=== PATIENT | male | born 1945 | race Caucasian/White ===

== ENCOUNTER 2016-10-27 12:17 | Emergency (ER) | payer SELFPAY ==
[~2016-10-27] VITALS: Ht 175.3 cm; Wt 81.6 kg
[2016-10-27 12:32] VITALS: BP_SYST 154
--- NOTE | 2016-10-27 12:45 | NUR ---
Patient to ER bed 6 to gown for evaluation. Side rails up. Report given to Gilma AKHTAR.
--- NOTE | 2016-10-27 13:00 | NUR ---
Pt c/o rash to RLE x 6 weeks. Pt states pain at 2/10 while resting, states pain 8/10 while ambulatory and describes pain as pins and needles.
[2016-10-27 13:18] LABS: BASOPHILS % (AUTO) 0.7 % (0.0-2.0); EOSINOPHILS # (AUTO) 0.3 K/uL (0.0-0.4); EOSINOPHILS % (AUTO) 4.8 % (0.0-4.0); HEMATOCRIT 46.6 % (36-54); HEMOGLOBIN 15.5 g/dL (14.0-18.0); LYMPHOCYTES # (AUTO) 0.9 K/uL (1.0-5.5); MEAN CORPUSCULAR HEMOGLOBIN 33 pg (27-31); MEAN CORPUSCULAR HGB CONC 33 % (32-36); MEAN CORPUSCULAR VOLUME 99 fL (79.0-98.0); MONOCYTES # (AUTO) 0.4 K/uL (0.0-1.0); MONOCYTES % (AUTO) 7.2 % (1.7-9.3); NEUTROPHILS # (AUTO) 4.3 K/uL (1.8-7.7); NEUTROPHILS % (AUTO) 72.3 % (40.0-70.0); PLATELET COUNT (AUTO) 239 K/uL (130-430); RED CELL DISTRIBUTION WIDTH 12.3 % (9.0-15.0); WHITE BLOOD COUNT (AUTO) 5.9 K/uL (4.8-10.8)
[2016-10-27 13:28] LABS: ANION GAP 6 (5-15); CALCIUM 9.1 mg/dL (8.4-11.0); CHLORIDE 105 mmol/L (98-107); CREATININE 0.98 mg/dL (0.55-1.30); GLUCOSE 116 mg/dL (70-99); POTASSIUM 4.2 mmol/L (3.5-5.1); SODIUM SERUM 139 mmol/L (136-145); UREA NITROGEN, BLOOD 9 mg/dL (8-21)
[2016-10-27 13:31] LABS: PROTHROMBIN TIME 11.3 SECS (9.5-12.5)
[2016-10-27 13:33] LABS: ALANINE AMINOTRANSFERASE 22 U/L (12-78); ALBUMIN 4.3 g/dL (3.4-4.8); ASPARTATE AMINOTRANSFERASE 23 U/L (10-37); TOTAL BILIRUBIN 2.1 mg/dL (0.0-1.0); TOTAL PROTEIN, SERUM 7.9 g/dL (6.4-8.3)
--- NOTE | 2016-10-27 13:50 | NUR ---
Dr. Zamora at bedside to assess pt.
[2016-10-27] MEDS ORDERED: AMPICILLIN SODIUM/SULBACTAM NA 3 GM in NS 100 ML IV ONE (14:00)
[2016-10-27] MEDS ORDERED: AMPICILLIN SODIUM/SULBACTAM NA 3 GM VIAL ONE (14:33)
[2016-10-27 14:56] LABS: BILIRUBIN,URINE NEGATIVE (NEGATIVE); BLOOD, URINE NEGATIVE (NEGATIVE); CLARITY/URINE CLEAR (CLEAR); COLOR,URINE YELLOW (YELLOW); GLUCOSE,URINE NEGATIVE (NEGATIVE); KETONES,URINE NEGATIVE (NEGATIVE); LEUKOCYTE ESTERASE ,URINE NEGATIVE (NEGATIVE); NITRITE, URINE NEGATIVE (NEGATIVE); PROTEIN URINE NEGATIVE (NEGATIVE); UROBILINOGEN,URINE 0.2 (0.2-1.0)
[2016-10-27 15:40] VITALS: BP_SYST 131
--- NOTE | 2016-10-27 15:40 | NUR ---
Patient given written and verbal discharge instructions and verbalizes understanding. ER MD dr. may discussed with patient the results and treatment provided. Patient in stable condition. ID arm band removed. IV catheter removed intact and dressing applied, no active bleeding. Rx of keflex tylenol given. Patient educated on pain management and to follow up with PMD. Pain Scale 0/10 Opportunity for questions provided and answered.
== END 2016-10-27 15:40 | disposition home or self-care (01) ==
LOC: SED 12:17
DX: L03.116 Cellulitis of left lower limb (principal); L03.115 Cellulitis of right lower limb
CPT/HCPCS: 36415; 80053; 81003; 83605; 85025; 85610; 87040; 96365; 99284; J0295

== ENCOUNTER 2016-11-05 16:07 | Emergency (ER) | payer SELFPAY ==
[~2016-11-05] VITALS: Ht 175.3 cm; Wt 79.4 kg
[2016-11-05 16:21] VITALS: BP 147/91; PULSE 88; RESP 14; TEMP 98.1; O2SAT 95
--- NOTE | 2016-11-05 16:50 | NUR ---
Ambulatory to bed 3
--- NOTE | 2016-11-05 16:52 | NUR ---
ED [facility] at bedside for medical evaluation
--- NOTE | 2016-11-05 16:55 | NUR ---
PT arrived to ED A/O x 4 with C/O lower leg rash x 10 days. PT states onset of open lesion rash 10 days ago. Seeked medical attention and was prescribed Keflex. PT states 4/10 burning pain bilaterally to the lower extremeties. No other complaints at this time. Will continue to monitor.
[2016-11-05] MEDS ORDERED: cefTRIAXone 2 GM VIAL IM ONE (17:30)
--- NOTE | 2016-11-05 17:30 | NUR ---
PT sitting quietly in bedside chair. Appears in no acute distress. Will continue to monitor.
[2016-11-05] MEDS ORDERED: LIDOCAINE 2%, 20 ML MDV ONE (17:56)
[2016-11-05] MEDS ORDERED: LIDOCAINE 2%, 20 ML MDV INJ ONE (18:00)
[2016-11-05 18:10] VITALS: BP 147/91; PULSE 88; RESP 14; TEMP 98.1; O2SAT 95
--- NOTE | 2016-11-05 18:10 | NUR ---
Patient given written and verbal discharge instructions and verbalizes understanding. ER MD discussed with patient the results and treatment provided. Patient in stable condition. ID arm band removed. Rx of doxycycline given. Patient educated on pain management, ABX regimine and to follow up with PMD. Pain Scale 2. Opportunity for questions provided and answered.
== END 2016-11-05 18:10 | disposition home or self-care (01) ==
LOC: SED 16:07
DX: L03.116 Cellulitis of left lower limb (principal); L03.115 Cellulitis of right lower limb
CPT/HCPCS: 36415; 87040; 96372; 99283; J0696; J2001

== ENCOUNTER 2016-11-15 18:17 | Emergency (ER) | payer SELFPAY ==
[~2016-11-15] VITALS: Ht 172.7 cm; Wt 83.9 kg
[2016-11-15 18:20] VITALS: BP_SYST 186
[2016-11-15 20:49] VITALS: BP_SYST 167
== END 2016-11-15 20:49 | disposition home or self-care (01) ==
LOC: SED 18:17
DX: L03.113 Cellulitis of right upper limb (principal); L03.116 Cellulitis of left lower limb; L03.115 Cellulitis of right lower limb; R03.0 Elevated blood-pressure reading, without diagnosis of hypertension
CPT/HCPCS: 99283

== ENCOUNTER 2023-02-09 11:10 | Inpatient (IN) | payer SELFPAY ==
[~2023-02-09] VITALS: Ht 170.2 cm; Wt 59.0 kg
[2023-02-09 11:10] VITALS: BP_SYST 116; PULSE 114; RESP 18; TEMP 97; O2SAT 97
[~2023-02-09 11:10] MED LIST: ASPI-1457 PO; METO25TA6 PO
[2023-02-09 11:58] LABS: BASOPHILS % (AUTO) 1.4 % (0.0-2.0); EOSINOPHILS # (AUTO) 0.1 K/uL (0.0-0.4); EOSINOPHILS % (AUTO) 1.8 % (0.0-4.0); HEMATOCRIT 37.8 % (36-54); HEMOGLOBIN 12.5 g/dL (14.0-18.0); LYMPHOCYTES # (AUTO) 1.2 K/uL (1.0-5.5); LYMPHOCYTES % (AUTO) 38.2 % (20.5-51.5); MEAN CORPUSCULAR HEMOGLOBIN 34 pg (27-31); MEAN CORPUSCULAR HGB CONC 33 % (32-36); MEAN CORPUSCULAR VOLUME 104 fL (79.0-98.0); MONOCYTES # (AUTO) 0.4 K/uL (0.0-1.0); MONOCYTES % (AUTO) 12.2 % (1.7-9.3); NEUTROPHILS # (AUTO) 1.4 K/uL (1.8-7.7); NEUTROPHILS % (AUTO) 46.4 % (40.0-70.0); PLATELET COUNT (AUTO) 228 K/uL (130-430); RED BLOOD CELL COUNT(AUTO) 3.65 MIL/uL (4.2-6.2); RED CELL DISTRIBUTION WIDTH 15.1 % (9.0-15.0); WHITE BLOOD COUNT (AUTO) 3.1 K/uL (4.8-10.8)
[2023-02-09 12:08] LABS: ALANINE AMINOTRANSFERASE 12 U/L (12-78); ALBUMIN 3.4 g/dL (3.4-4.8); ANION GAP 5 (5-15); ASPARTATE AMINOTRANSFERASE 23 U/L (10-37); CALCIUM 8.4 mg/dL (8.4-11.0); CARBON DIOXIDE 28 mmol/L (23-29); CHLORIDE 102 mmol/L (98-107); CREATININE 0.74 mg/dL (0.55-1.30); GLUCOSE 105 mg/dL (74-106); POTASSIUM 4.5 mmol/L (3.5-5.1); SODIUM SERUM 135 mmol/L (136-145); TOTAL BILIRUBIN 0.8 mg/dL (0.0-1.0); TOTAL PROTEIN, SERUM 6.9 g/dL (6.4-8.3); UREA NITROGEN, BLOOD 28 mg/dL (8-21)
[2023-02-09 12:17] LABS: CREATINE KINASE, TOTAL 82 U/L (39-308)
[2023-02-09 12:19] LABS: ACETAMINOPHEN < 1 ug/mL (1-30); ALCOHOL, BLOOD < 3 mg/dL (<10); SALICYLATE < 1 mg/dL (3-30)
[2023-02-09 12:22] LABS: INR 1.1 (0.80-1.20); PROTHROMBIN TIME 11.5 SECS (9.5-12.5)
[2023-02-09 12:34] LABS: ACETONE, SERUM NEGATIVE (NEGATIVE)
[2023-02-09] MEDS ORDERED: ONDANSETRON HCL 4 MG/2 ML VIAL IVP PRN (14:00)
[2023-02-09] MEDS ORDERED: HYDROcodone/ACETAMIN 5-325 MG TAB (NORCO/ VICODIN) PO PRN (14:00)
[2023-02-09] MEDS ORDERED: LORazepam 2 MG/ML VIAL IVP PRN (14:00)
[2023-02-09] MEDS ORDERED: HYDROcodone/ACETAMIN 10-325 MG TAB PO PRN (14:00)
[2023-02-09] MEDS ORDERED: ACETAMINOPHEN 325 MG TABLET PO PRN ×2 (14:00→14:15)
[2023-02-09] MEDS: NORMAL SALINE 5 ML DISP.SYRIN IVF SCH ×2 (14:14→23:18)
[2023-02-09 14:34] LABS: BILIRUBIN,URINE NEGATIVE (NEGATIVE); BLOOD, URINE NEGATIVE (NEGATIVE); CLARITY/URINE CLEAR (CLEAR); COLOR,URINE YELLOW (YELLOW); GLUCOSE,URINE NEGATIVE (NEGATIVE); KETONES,URINE NEGATIVE (NEGATIVE); LEUKOCYTE ESTERASE ,URINE NEGATIVE (NEGATIVE); NITRITE, URINE NEGATIVE (NEGATIVE); PH,URINE 6.5 (5.0-8.0); PROTEIN URINE NEGATIVE (NEGATIVE)
[2023-02-09 14:46] LABS: BARBITURATE, URINE NEGATIVE (NEG <=200); BENZODIAZEPINE, URINE NEGATIVE (NEG <=150); CANNABINOID, URINE NEGATIVE (NEG <=50); COCAINE, URINE NEGATIVE (NEG <=150); METHAMPHETAMINES SCREEN,URINE NEGATIVE (NEG <=500); OPIATE, URINE NEGATIVE (NEG <=100); PHENCYCLIDINE SCREEN,URINE NEGATIVE (NEG <=25); UR TRICYCLIC ANTIDEPRESSANTS NEGATIVE (NEG <=300); URINE AMPHETAMINE NEGATIVE (NEG <=500); URINE METHADONE NEGATIVE (NEG <=200); URINE OXYCODONE SCREEN NEGATIVE (NEG <=100); URINE PROPOXYPHENE SCREEN NEGATIVE (NEG <=300)
[2023-02-09 16:08] VITALS: BP_SYST 142; PULSE 113; RESP 16; TEMP 97.4; O2SAT 99
[2023-02-09 16:09] VITALS: BP_SYST 142; PULSE 113; RESP 16; TEMP 97.4
[2023-02-09 20:00] VITALS: BP_SYST 122; PULSE 100; RESP 18; TEMP 98; O2SAT 95; O2SAT 98
[2023-02-09 23:13] VITALS: BP_SYST 122; PULSE 100; RESP 18; TEMP 98; O2SAT 98
[2023-02-10] VITALS (7 sets, daily range): BP systolic 106–136; PULSE 76–95; RESP 16–18; TEMP 96.8–98.6; O2SAT 96–99
[2023-02-10 05:08] LABS: BASOPHILS % (AUTO) 1.2 % (0.0-2.0); EOSINOPHILS # (AUTO) 0.1 K/uL (0.0-0.4); EOSINOPHILS % (AUTO) 2.9 % (0.0-4.0); HEMATOCRIT 36.9 % (36-54); HEMOGLOBIN 12.4 g/dL (14.0-18.0); LYMPHOCYTES # (AUTO) 1.3 K/uL (1.0-5.5); LYMPHOCYTES % (AUTO) 48.2 % (20.5-51.5); MEAN CORPUSCULAR HEMOGLOBIN 35 pg (27-31); MEAN CORPUSCULAR HGB CONC 34 % (32-36); MEAN CORPUSCULAR VOLUME 103 fL (79.0-98.0); MONOCYTES # (AUTO) 0.4 K/uL (0.0-1.0); MONOCYTES % (AUTO) 13.7 % (1.7-9.3); PLATELET COUNT (AUTO) 184 K/uL (130-430); RED BLOOD CELL COUNT(AUTO) 3.59 MIL/uL (4.2-6.2); RED CELL DISTRIBUTION WIDTH 14.7 % (9.0-15.0); WHITE BLOOD COUNT (AUTO) 2.8 K/uL (4.8-10.8)
[2023-02-10 05:13] LABS: NEUTROPHILS # (AUTO) 0.9 K/uL (1.8-7.7)
[2023-02-10] MEDS: NORMAL SALINE 5 ML DISP.SYRIN IVF SCH ×3 (05:21→22:45)
[2023-02-10 06:33] LABS: ALANINE AMINOTRANSFERASE 13 U/L (12-78); ALBUMIN 3.1 g/dL (3.4-4.8); ANION GAP 2 (5-15); ASPARTATE AMINOTRANSFERASE 23 U/L (10-37); CALCIUM 8.5 mg/dL (8.4-11.0); CARBON DIOXIDE 31 mmol/L (23-29); CHLORIDE 103 mmol/L (98-107); CREATININE 0.72 mg/dL (0.55-1.30); GLUCOSE 95 mg/dL (74-106); PHOSPHORUS 4.2 mg/dL (2.7-4.5); POTASSIUM 4.4 mmol/L (3.5-5.1); SODIUM SERUM 136 mmol/L (136-145); TOTAL BILIRUBIN 1.2 mg/dL (0.0-1.0); TOTAL PROTEIN, SERUM 6.1 g/dL (6.4-8.3); UREA NITROGEN, BLOOD 20 mg/dL (8-21)
[2023-02-11 00:29] VITALS: BP_SYST 99; PULSE 59; RESP 15; TEMP 96.9; O2SAT 97
[2023-02-11 05:19] LABS: BASOPHILS % (AUTO) 0.8 % (0.0-2.0); EOSINOPHILS # (AUTO) 0.1 K/uL (0.0-0.4); EOSINOPHILS % (AUTO) 2.5 % (0.0-4.0); HEMATOCRIT 36.9 % (36-54); HEMOGLOBIN 12.3 g/dL (14.0-18.0); LYMPHOCYTES # (AUTO) 1.4 K/uL (1.0-5.5); LYMPHOCYTES % (AUTO) 43.1 % (20.5-51.5); MEAN CORPUSCULAR HEMOGLOBIN 34 pg (27-31); MEAN CORPUSCULAR HGB CONC 33 % (32-36); MEAN CORPUSCULAR VOLUME 103 fL (79.0-98.0); MONOCYTES # (AUTO) 0.5 K/uL (0.0-1.0); MONOCYTES % (AUTO) 15.6 % (1.7-9.3); NEUTROPHILS # (AUTO) 1.2 K/uL (1.8-7.7); PLATELET COUNT (AUTO) 203 K/uL (130-430); RED BLOOD CELL COUNT(AUTO) 3.58 MIL/uL (4.2-6.2); RED CELL DISTRIBUTION WIDTH 14.8 % (9.0-15.0); WHITE BLOOD COUNT (AUTO) 3.2 K/uL (4.8-10.8)
[2023-02-11 05:37] LABS: ANION GAP 4 (5-15); CALCIUM 8.7 mg/dL (8.4-11.0); CARBON DIOXIDE 31 mmol/L (23-29); CHLORIDE 102 mmol/L (98-107); CREATININE 0.86 mg/dL (0.55-1.30); GLUCOSE 81 mg/dL (74-106); POTASSIUM 4.5 mmol/L (3.5-5.1); SODIUM SERUM 137 mmol/L (136-145); UREA NITROGEN, BLOOD 25 mg/dL (8-21)
[2023-02-11] MEDS: NORMAL SALINE 5 ML DISP.SYRIN IVF SCH ×3 (06:17→21:39)
[2023-02-11 08:56] VITALS: O2SAT 99
[2023-02-11 12:00] VITALS: BP_SYST 136; PULSE 80; RESP 17; TEMP 98.1; O2SAT 94
[2023-02-11 16:00] VITALS: BP_SYST 131; PULSE 82; RESP 18; TEMP 97.8; O2SAT 95
[2023-02-11 19:30] VITALS: O2SAT 99
[2023-02-11 20:00] VITALS: BP_SYST 104; PULSE 84; RESP 18; TEMP 97.6; O2SAT 99
[2023-02-12] VITALS: BP_SYST 108; PULSE 78; RESP 18; TEMP 97.3; O2SAT 98
[2023-02-12] MEDS: NORMAL SALINE 5 ML DISP.SYRIN IVF SCH ×3 (05:56→21:28)
[2023-02-12 06:43] LABS: BASOPHILS % (AUTO) 0.9 % (0.0-2.0); EOSINOPHILS # (AUTO) 0.1 K/uL (0.0-0.4); EOSINOPHILS % (AUTO) 2.4 % (0.0-4.0); HEMATOCRIT 38.6 % (36-54); HEMOGLOBIN 13.1 g/dL (14.0-18.0); LYMPHOCYTES # (AUTO) 1.1 K/uL (1.0-5.5); LYMPHOCYTES % (AUTO) 30.3 % (20.5-51.5); MEAN CORPUSCULAR HEMOGLOBIN 35 pg (27-31); MEAN CORPUSCULAR HGB CONC 34 % (32-36); MEAN CORPUSCULAR VOLUME 102 fL (79.0-98.0); MONOCYTES # (AUTO) 0.6 K/uL (0.0-1.0); MONOCYTES % (AUTO) 15.9 % (1.7-9.3); NEUTROPHILS # (AUTO) 1.9 K/uL (1.8-7.7); NEUTROPHILS % (AUTO) 50.5 % (40.0-70.0); PLATELET COUNT (AUTO) 215 K/uL (130-430); RED BLOOD CELL COUNT(AUTO) 3.79 MIL/uL (4.2-6.2); RED CELL DISTRIBUTION WIDTH 14.9 % (9.0-15.0)
[2023-02-12 07:45] LABS: ALANINE AMINOTRANSFERASE 10 U/L (12-78); ANION GAP 2 (5-15); ASPARTATE AMINOTRANSFERASE 20 U/L (10-37); CALCIUM 8.7 mg/dL (8.4-11.0); CARBON DIOXIDE 31 mmol/L (23-29); CHLORIDE 102 mmol/L (98-107); CREATININE 0.78 mg/dL (0.55-1.30); GLUCOSE 92 mg/dL (74-106); POTASSIUM 4.5 mmol/L (3.5-5.1); SODIUM SERUM 135 mmol/L (136-145); TOTAL PROTEIN, SERUM 6.4 g/dL (6.4-8.3); UREA NITROGEN, BLOOD 23 mg/dL (8-21)
[2023-02-12 07:51] LABS: WHITE BLOOD COUNT (AUTO) 3.7 K/uL (4.8-10.8)
[2023-02-12 08:00] VITALS: BP_SYST 118; PULSE 72; RESP 14; TEMP 98.1; O2SAT 96
[2023-02-12 12:00] VITALS: BP_SYST 100; PULSE 84; RESP 18; TEMP 98.4
[2023-02-12 16:00] VITALS: BP_SYST 133; PULSE 82; RESP 18; TEMP 98.2; O2SAT 99
[2023-02-12 19:30] VITALS: O2SAT 98
[2023-02-12 20:00] VITALS: BP_SYST 133; PULSE 84; RESP 18; TEMP 97.9; O2SAT 98
[2023-02-13 02:08] VITALS: BP_SYST 103; PULSE 84; RESP 18; TEMP 97.6; O2SAT 97
[2023-02-13 05:22] LABS: BASOPHILS % (AUTO) 1.5 % (0.0-2.0); EOSINOPHILS # (AUTO) 0.1 K/uL (0.0-0.4); EOSINOPHILS % (AUTO) 3.3 % (0.0-4.0); HEMATOCRIT 41.6 % (36-54); HEMOGLOBIN 13.7 g/dL (14.0-18.0); LYMPHOCYTES # (AUTO) 1.2 K/uL (1.0-5.5); LYMPHOCYTES % (AUTO) 38.1 % (20.5-51.5); MEAN CORPUSCULAR HEMOGLOBIN 34 pg (27-31); MEAN CORPUSCULAR HGB CONC 33 % (32-36); MEAN CORPUSCULAR VOLUME 103 fL (79.0-98.0); MONOCYTES # (AUTO) 0.6 K/uL (0.0-1.0); MONOCYTES % (AUTO) 19.3 % (1.7-9.3); NEUTROPHILS # (AUTO) 1.2 K/uL (1.8-7.7); NEUTROPHILS % (AUTO) 37.8 % (40.0-70.0); PLATELET COUNT (AUTO) 222 K/uL (130-430); RED BLOOD CELL COUNT(AUTO) 4.04 MIL/uL (4.2-6.2); RED CELL DISTRIBUTION WIDTH 14.9 % (9.0-15.0); WHITE BLOOD COUNT (AUTO) 3.3 K/uL (4.8-10.8)
[2023-02-13 05:46] LABS: ANION GAP 7 (5-15); CALCIUM 8.7 mg/dL (8.4-11.0); CARBON DIOXIDE 29 mmol/L (23-29); CHLORIDE 102 mmol/L (98-107); CREATININE 0.79 mg/dL (0.55-1.30); GLUCOSE 98 mg/dL (74-106); POTASSIUM 4.6 mmol/L (3.5-5.1); SODIUM SERUM 138 mmol/L (136-145); UREA NITROGEN, BLOOD 26 mg/dL (8-21)
[2023-02-13] MEDS: NORMAL SALINE 5 ML DISP.SYRIN IVF SCH ×3 (06:25→21:03)
[2023-02-13 08:00] VITALS: BP_SYST 118; PULSE 80; RESP 18; TEMP 97.4; O2SAT 92
[2023-02-13 12:00] VITALS: BP_SYST 116; PULSE 80; RESP 18; TEMP 97.6; O2SAT 93
[2023-02-13 16:00] VITALS: BP_SYST 118; PULSE 84; RESP 18; TEMP 97.5; O2SAT 94
[2023-02-13 20:00] VITALS: BP_SYST 105; PULSE 86; RESP 18; TEMP 97.8; O2SAT 99
[2023-02-14 00:40] VITALS: BP_SYST 126; PULSE 87; RESP 14; TEMP 96.7; O2SAT 100
[2023-02-14 04:45] LABS: BASOPHILS % (AUTO) 1.6 % (0.0-2.0); EOSINOPHILS # (AUTO) 0.1 K/uL (0.0-0.4); EOSINOPHILS % (AUTO) 3.6 % (0.0-4.0); HEMATOCRIT 42.6 % (36-54); HEMOGLOBIN 13.9 g/dL (14.0-18.0); LYMPHOCYTES # (AUTO) 1.1 K/uL (1.0-5.5); LYMPHOCYTES % (AUTO) 39.2 % (20.5-51.5); MEAN CORPUSCULAR HEMOGLOBIN 34 pg (27-31); MEAN CORPUSCULAR HGB CONC 33 % (32-36); MEAN CORPUSCULAR VOLUME 103 fL (79.0-98.0); MONOCYTES # (AUTO) 0.5 K/uL (0.0-1.0); MONOCYTES % (AUTO) 16.7 % (1.7-9.3); NEUTROPHILS # (AUTO) 1.1 K/uL (1.8-7.7); NEUTROPHILS % (AUTO) 38.9 % (40.0-70.0); PLATELET COUNT (AUTO) 221 K/uL (130-430); RED BLOOD CELL COUNT(AUTO) 4.15 MIL/uL (4.2-6.2); WHITE BLOOD COUNT (AUTO) 2.8 K/uL (4.8-10.8)
[2023-02-14 05:04] LABS: ALANINE AMINOTRANSFERASE 12 U/L (12-78); ANION GAP 4 (5-15); ASPARTATE AMINOTRANSFERASE 19 U/L (10-37); CALCIUM 8.6 mg/dL (8.4-11.0); CARBON DIOXIDE 32 mmol/L (23-29); CHLORIDE 103 mmol/L (98-107); CREATININE 0.72 mg/dL (0.55-1.30); GLUCOSE 92 mg/dL (74-106); POTASSIUM 4.4 mmol/L (3.5-5.1); SODIUM SERUM 139 mmol/L (136-145); TOTAL BILIRUBIN 1.1 mg/dL (0.0-1.0); TOTAL PROTEIN, SERUM 6.8 g/dL (6.4-8.3); UREA NITROGEN, BLOOD 28 mg/dL (8-21)
[2023-02-14] MEDS: NORMAL SALINE 5 ML DISP.SYRIN IVF SCH ×3 (05:55→22:52)
[2023-02-14 08:00] VITALS: BP_SYST 120; PULSE 86; RESP 16; TEMP 97.6; O2SAT 96; O2SAT 99
[2023-02-14 12:00] VITALS: BP_SYST 116; PULSE 96; RESP 16; TEMP 98.8; O2SAT 97
[2023-02-14 15:42] VITALS: BP_SYST 125; PULSE 88; RESP 18; TEMP 97.9; O2SAT 95
[2023-02-14 16:00] VITALS: BP_SYST 119; PULSE 93; RESP 16; TEMP 98.2; O2SAT 97
[2023-02-14 21:00] VITALS: BP_SYST 129; PULSE 89; RESP 18; TEMP 97.5; O2SAT 96
[2023-02-15] VITALS: O2SAT 95
[2023-02-15 01:00] VITALS: BP_SYST 132; PULSE 89; RESP 18; TEMP 98.3; O2SAT 96
[2023-02-15] MEDS: NORMAL SALINE 5 ML DISP.SYRIN IVF SCH ×2 (05:44→13:09)
[2023-02-15 07:04] LABS: BASOPHILS # (AUTO) 0.1 K/uL (0.0-0.2); BASOPHILS % (AUTO) 2.3 % (0.0-2.0); EOSINOPHILS # (AUTO) 0.1 K/uL (0.0-0.4); EOSINOPHILS % (AUTO) 3.2 % (0.0-4.0); HEMATOCRIT 40.6 % (36-54); HEMOGLOBIN 13.3 g/dL (14.0-18.0); LYMPHOCYTES # (AUTO) 0.9 K/uL (1.0-5.5); LYMPHOCYTES % (AUTO) 32.9 % (20.5-51.5); MEAN CORPUSCULAR HEMOGLOBIN 34 pg (27-31); MEAN CORPUSCULAR HGB CONC 33 % (32-36); MEAN CORPUSCULAR VOLUME 103 fL (79.0-98.0); MONOCYTES # (AUTO) 0.5 K/uL (0.0-1.0); MONOCYTES % (AUTO) 16.8 % (1.7-9.3); NEUTROPHILS # (AUTO) 1.2 K/uL (1.8-7.7); NEUTROPHILS % (AUTO) 44.8 % (40.0-70.0); PLATELET COUNT (AUTO) 207 K/uL (130-430); RED BLOOD CELL COUNT(AUTO) 3.94 MIL/uL (4.2-6.2); WHITE BLOOD COUNT (AUTO) 2.8 K/uL (4.8-10.8)
[2023-02-15 07:25] LABS: ANION GAP 4 (5-15); CARBON DIOXIDE 31 mmol/L (23-29); CHLORIDE 101 mmol/L (98-107); CREATININE 0.82 mg/dL (0.55-1.30); GLUCOSE 93 mg/dL (74-106); POTASSIUM 4.3 mmol/L (3.5-5.1); SODIUM SERUM 136 mmol/L (136-145); UREA NITROGEN, BLOOD 40 mg/dL (8-21)
[2023-02-15 08:00] VITALS: BP_SYST 114; PULSE 77; RESP 15; TEMP 97.6; O2SAT 99
[2023-02-15 12:58] VITALS: O2SAT 99
[2023-02-15 15:19] VITALS: BP_SYST 123; PULSE 84; RESP 15; TEMP 97.3; O2SAT 98
[2023-02-15 15:31] VITALS: BP_SYST 128; PULSE 76; RESP 15; TEMP 97.2; O2SAT 98
== END 2023-02-15 16:05 | disposition home or self-care (01) | DRG 641 ==
LOC: SED 11:10 → EDBD 11:10 → MERGE 13:44 → SMU 13:44
PROVIDERS: ADMIT Preventive Medicine Preventive Medicine/Occupational Environmental Medicine; ATTEND Preventive Medicine Preventive Medicine/Occupational Environmental Medicine
DX: E87.1 Hypo-osmolality and hyponatremia (principal); G93.40 Encephalopathy, unspecified; E44.0 Moderate protein-calorie malnutrition; E87.20 Acidosis, unspecified; K40.90 Unilateral inguinal hernia, without obstruction or gangrene, not specified as recurrent; E88.09 Other disorders of plasma-protein metabolism, not elsewhere classified; D72.819 Decreased white blood cell count, unspecified; D64.9 Anemia, unspecified; R79.89 Other specified abnormal findings of blood chemistry; M47.818 Spondylosis without myelopathy or radiculopathy, sacral and sacrococcygeal region; M47.816 Spondylosis without myelopathy or radiculopathy, lumbar region; R53.81 Other malaise; Z59.00 Homelessness unspecified; Z68.20 Body mass index [BMI] 20.0-20.9, adult
CPT/HCPCS: 36415; 70450-TC; 71045; 76376; 80048; 80053; 80307; 81003; 82009; 82140; 82550; 83605; 83735; 83880; 84100; 84484; 85025; 85610-TC; 85730-TC; 87040; 93005; 97116-GP; 97163-GP; 97530-GP; 99285; G0480; G0481; G0482